=== PATIENT | male | born 1950 | race Caucasian/White ===

== ENCOUNTER 2023-08-26 10:16 | Outpatient (AMB) | payer MEDICARE, BC, SELFPAY ==
--- NOTE | 2023-08-26 10:44 | A.OFFVIS_ITS ---
Intake Visit Reasons: Elevated PSA Intake Note: NEW Patient presents today to established treatment for Elevared PSA 6.3 mg/dL, 05/2022: Meds- None Allergies to Antibiotic- No Known Allergies Blood Thinner- None Post Void Residual: 49 mL Library Director Required: No Accompanied by: Self / Same As Patient Allergies No Known Allergies Allergy (Verified 08/26/23 10:45) Medication List - Last Reconciled 08/26/23 by Eli Lawson MD lisinopril 20 mg PO DAILY HPI Comments Details: Carter is a 73-year-old male here for new patient evaluation due to elevated PSA. He denies family history of prostate cancer. Prior history of cigarette use. On lisinopril for hypertension, history of coronary artery disease. I have reviewed consult referral, PSA-05/27/23-6.3 ng/mL. The patient denies voiding symptoms AUA symptom score (- mild) 5/35. I have discussed PSA is a blood test, prostate specific antigen and is an enzyme secreted by the prostate gland. Elevated PSA may be due to multiple conditions including prostate inflammatory condition, enlarged prostate or prostate cancer. I have discussed trial of Proscar 5 mg daily and repeat PSA, will check renal/bladder ultrasound. Prostate Exam: smooth enlarged, no suspicious nodules palp'd. Bladder scan PVR 49 mL. [facility] Surgical History History of heart artery stent Hx of knee surgery Social History Alcohol intake: current Alcohol intake frequency: holidays/special occasions only Patient Tobacco Use Status: Former Tobacco user Review of Systems Const All systems reviewed & are unremarkable except as noted in HPI and below Reports no additional complaints Eyes Reports no additional complaints ENT Reports no additional complaints Card Reports no additional complaints Resp Reports no additional complaints GI Reports no additional complaints Reports as per HPI Musc Reports no additional complaints Skin/Breast Reports system reviewed and no additional complaints, except as documented Neuro Reports no additional complaints Psych Reports no additional complaints Endo Reports no additional complaints Gagan/Lymph Reports no additional complaints Aller/Immun Reports no additional complaints Physical Exam Const General: healthy appearing, no acute distress and well developed Orientation/consciousness: patient oriented x3 HEENT Head: Yes normocephalic and Yes atraumatic Eyes Conjunctivae: conjunctivae normal Neck Neck: Yes normal visual inspection Chest Chest palpation & inspection: normal inspection of the chest Resp Effort & Inspection: normal respiratory effort Cardio Rate: regular rate GI Inspection: Yes normal to inspection Palpation (GI): Soft to palpation Other: Prostate Exam: smooth enlarged, no suspicious nodules palp'd Skin General skin exam: no rashes or lesions noted Neuro General: patient oriented x3 Extrem General: No pedal edema Psych Appearance: grossly normal Affect: normal affect Office Procedures Post Void Residual Post Residual Void Post Void Residual (PVR): 49 [id number] Void Residual by ultrasound Results AMB Urinalysis, Automated UA Leukoctes 15 Rohan/uL Last Edit by SHARIF Obrien on 08/26/23 10:56 UA Nitrite Negative Last Edit by SHARIF Obrien on 08/26/23 10:56 UA Urobilinogen 0.2 mg/dL Last Edit by SHARIF Obrien on 08/26/23 10:5 6 UA Protein 15 mg/dL Last Edit by SHARIF Obrien on 08/26/23 10:56 UA pH 6.0 Last Edit by SHARIF Obrien on 08/26/23 10:56 UA Blood 0 Reyes/uL Last Edit by SHARIF Obrien on 08/26/23 10:56 UA Specific [place] 1.015 Last Edit by SHARIF Obrien on 08/26/23 10: 56 UA Ketone Negative Last Edit by SHARIF Obrien on 08/26/23 10:56 UA Bilirubin 0 mg/dL Last Edit by SHARIF Obrien on 08/26/23 10:56 UA Glucose 0 mg/dL Last Edit by SHARIF Obrien on 08/26/23 10:56 Results Reviewed Results Reviewed: Laboratory Last Values Urine pH (Auto) 6.0 08/26/23 10:47 Specific [place] (Auto) 1.015 08/26/23 10:47 Urine Protein (Auto) 15 mg/dL 08/26/23 10:47 Glucose (UA)(Auto) 0 mg/dL 08/26/23 10:47 Urine Ketones (Auto) Negative 08/26/23 10:47 Urine Blood (Auto) 0 Reyes/uL 08/26/23 10:47 Urine Nitrite (Auto) Negative 08/26/23 10:47 Urine Bilirubin (Auto) 0 mg/dL 08/26/23 10:47 Urine Urobilinogen (Auto) 0.2 mg/dL 08/26/23 10:47 Leukocyte Esterase (Auto) 15 Rohan/uL 08/26/23 10:47 Assessment & Plan Assessment & Plan (1) Elevated PSA: Code(s): R97.20 - Elevated prostate specific antigen [PSA] Category: Medical (2) BPH with elevated PSA: Code(s): N40.0 - Benign prostatic hyperplasia without lower urinary tract symptoms; R97.20 - Elevated prostate specific antigen [PSA] Category: Medical Plan Proscar 5 mg daily. Repeat PSA in 3 months. Renal and bladder ultrasound. Follow-up in 4 months. Orders: Orders AMB Urinalysis Automated Today Z13.9 - Encounter for screening, unspecified AMB Post Void Residual by ultrasound Today N39.8 - Other specified disorders of urinary system US retroperitoneal comp 1 Month N40.0 - Benign prostatic hyperplasia without lower urinary tract symptoms, R97.20 - Elevated prostate specific antigen [PSA] Medications: New finasteride (Proscar) 5 mg PO DAILY 90 days 90 tabs 1RF Patient Instructions: The patient had an opportunity to ask questions regarding treatment plan. The patient expressed understanding and agreement with the above treatment plan. The patient is aware they should contact our office by phone for worsening of their current condition or the appearance of new symptoms. Compliance is encouraged with any medications and followup testing that is ordered. It is a privilege to be allowed the opportunity to participate in the urologic care of your patient. If you have any questions or concerns regarding treatment for the above conditions please do not hesitate to contact me. The office telephone contact is [phone]. This note is constructed in part using voice recognition software. While every effort has been made to ensure accuracy retail business analyst errors may have been included. Yours sincerely, Eli Lawson MD Coding Level of Care Code New Pt Level 4 (54815) Diagnoses Elevated PSA R97.20 BPH with elevated PSA N40.0; R97.20 CPT Codes Post Residual Void - PVR CPT Code: 19476-Bsfr Void Residual by ultrasound ([id number])
== END 2023-08-26 11:13 | disposition home or self-care (01) ==
PROVIDERS: PCP Nurse Practitioner; Visit Provider Urology
DX: R97.20 Elevated prostate specific antigen [PSA] (principal); N40.0 Benign prostatic hyperplasia without lower urinary tract symptoms; Z13.9 Encounter for screening, unspecified
CPT/HCPCS: 99204

== ENCOUNTER → 2023-08-26 10:16 | Outpatient (BNVA) | payer MEDICARE, BC, SELFPAY | PROVIDERS: PCP Nurse Practitioner; Visit Provider Urology | DX: N40.0 Benign prostatic hyperplasia without lower urinary tract symptoms (principal); R97.20 Elevated prostate specific antigen [PSA] | CPT/HCPCS: 51798; 81003; 99202 ==

== ENCOUNTER 2023-09-14 10:30 | Outpatient (REF) | payer MEDICARE, BC, SELFPAY ==
--- NOTE | ~2023-09-14 | US_ITS ---
EXAMINATION: US RETROPERITONEAL COMPLETE (RENAL) CLINICAL INFORMATION: Benign prostatic hyperplasia without lower urinary tract symptoms. COMPARISON: None available. TECHNIQUE: Real-time imaging of the kidneys and bladder. FINDINGS: RIGHT KIDNEY: 11.5 x 7.0 x 5.9 cm (SAG x AP x TRV). The kidney is normal in size, contour, and echogenicity. Renal cortical thickness is normal. No renal calculi or hydronephrosis. 1.3 cm simple cyst in the mid kidney. 1.1 cm simple cyst in the upper kidney. No imaging follow-up is recommended. LEFT KIDNEY: 11.6 x 4.7 x 5.4 cm (SAG x AP x TRV). The kidney is normal in size, contour, and echogenicity. Renal cortical thickness is normal. No renal calculi or hydronephrosis. 1.9 cm simple cyst in the lower pole. 1.5 cm simple cyst in the lower pole. No imaging follow-up is recommended. BLADDER: Well distended and normal. Bilateral ureteral jets are demonstrated. Prevoid bladder volume is 168.0 mL. Postvoid bladder volume is 11.0 mL. ADDITIONAL FINDINGS: The prostate measures approximately 120 mL. US/US retroperitoneal comp IMPRESSION: Enlarged prostate measuring approximately 120 mL. No hydronephrosis.
== END 2023-09-14 10:31 | disposition home or self-care (01) ==
LOC: HO.US 10:30
PROVIDERS: PCP Internal Medicine; Visit Provider Urology
DX: N20.0 Calculus of kidney (principal); R97.20 Elevated prostate specific antigen [PSA]
CPT/HCPCS: 76770

== ENCOUNTER 2024-10-05 13:13 | Outpatient (AMB) | payer MEDICARE, SELFPAY ==
--- NOTE | 2024-10-05 13:24 | MHC.OFFVIS ---
Intake Visit Reasons: Elevated PSA Intake Note: Patient presents today for elevated PSA 05/07 PSA: 7.6 Urology Meds- None Allergies to Antibiotic- No Known Allergies Blood Thinner- None PVR:35ml Government Affairs Researcher Required: No Accompanied by: Self / Same As Patient Allergies No Known Allergies Allergy (Verified 10/05/24 13:26) Medication List - Last Reconciled 10/05/24 by Eli Lawson MD finasteride (Proscar) 5 mg PO DAILY 90 days lisinopril 20 mg PO DAILY HPI Comments Details: 10/05/24-- History of Present Illness - The patient is a 74-year-old male presenting with elevated prostate-specific antigen (PSA) levels. - The patient has a history of benign prostatic hyperplasia, with a prostate volume measured at over 100 mL - The patient was previously prescribed finasteride to manage prostate size and PSA levels but discontinued use a month ago. - Currently no significant complaints of urinary symptoms. Results - Renal ultrasound: Prostate volume measured at over 100 mL. - PSA 05/08/24--7.6 ng/mL Discussion Notes I discussed with the patient that the prostate volume is significantly enlarged at over 100 mL, which can contribute to elevated PSA levels. We reviewed the role of finasteride in reducing prostate size and PSA levels, and the importance of resuming the medication for a month before re-evaluating PSA levels. I advised the patient to avoid sexual activity and coffee before the PSA test to prevent false elevation of PSA levels. A follow-up telephone call is planned in six weeks to discuss the PSA results and determine further management, including the possibility of a biopsy if PSA levels do not decrease. 08/26/23--Carter is a 73-year-old male here for new patient evaluation due to elevated PSA. He denies family history of prostate cancer. Prior history of cigarette use. On lisinopril for hypertension, history of coronary artery disease. I have reviewed consult referral, PSA-05/27/23-6.3 ng/mL. The patient denies voiding symptoms AUA symptom score (-mild) . I have discussed PSA is a blood test, prostate specific antigen and is an enzyme secreted by the prostate gland. Elevated PSA may be due to multiple conditions including prostate inflammatory condition, enlarged prostate or prostate cancer. I have discussed trial of Proscar 5 mg daily and repeat PSA, will check renal/bladder ultrasound. Prostate Exam: smooth enlarged, no suspicious nodules palp'd. Bladder scan PVR 49 mL. [facility] Surgical History History of heart artery stent Hx of knee surgery Social History Alcohol intake: current Alcohol intake frequency: holidays/special occasions only Patient Tobacco Use Status: Former Tobacco user Review of Systems Const All systems reviewed & are unremarkable except as noted in HPI and below Reports no additional complaints Eyes Reports no additional complaints ENT Reports no additional complaints Card Reports no additional complaints Resp Reports no additional complaints GI Reports no additional complaints Reports as per HPI Musc Reports no additional complaints Skin/Breast Reports system reviewed and no additional complaints, except as documented Neuro Reports no additional complaints Psych Reports no additional complaints Endo Reports no additional complaints Gagan/Lymph Reports no additional complaints Aller/Immun Reports no additional complaints Office Procedures Post Void Residual Post Residual Void Post Void Residual (PVR): 35 [id number] Void Residual by ultrasound Results AMB Urinalysis, Automated UA Leukoctes 15 Rohan/uL Last Edit by BELEN Gan on 10/05/24 16:30 UA Nitrite Negative Last Edit by BELEN Gan on 10/05/24 16:30 UA Urobilinogen 17 mg/dL Last Edit by Peg Clark CCM on 10/05/24 16:30 UA Protein 15 mg/dL Last Edit by Peg Clark CCM on 10/05/24 16:30 UA pH 6.0 Last Edit by Peg Clark CCM on 10/05/24 16:30 UA Blood 0 Reyes/uL Last Edit by Peg Clark CCM on 10/05/24 16:30 UA Specific [place] 1.020 Last Edit by BELEN Gan on 10/05/24 16:30 UA Ketone Negative Last Edit by BELEN Gan on 10/05/24 16:30 UA Bilirubin 0 mg/dL Last Edit by Peg Clark CCM on 10/05/24 16:30 UA Glucose 0 mg/dL Last Edit by Peg Clark CCMA on 10/05/24 16:30 Results Reviewed Results Reviewed: Laboratory Last Values Urine pH (Auto) 6.0 10/05/24 16:29 Specific [place] (Auto) 1.020 10/05/24 16:29 Urine Protein (Auto) 15 mg/dL 10/05/24 16:29 Glucose (UA)(Auto) 0 mg/dL 10/05/24 16:29 Urine Ketones (Auto) Negative 10/05/24 16:29 Urine Blood (Auto) 0 Reyes/uL 10/05/24 16:29 Urine Nitrite (Auto) Negative 10/05/24 16:29 Urine Bilirubin (Auto) 0 mg/dL 10/05/24 16:29 Urine Urobilinogen (Auto) 17 mg/dL 10/05/24 16:29 Leukocyte Esterase (Auto) 15 Rohan/uL 10/05/24 16:29 Date of Service: 09/14/23 Procedure(s): US retroperitoneal comp Accession Number(s): [id number] cc: Eli Lawson MD; Juan Jose Donovan EXAMINATION: US RETROPERITONEAL COMPLETE (RENAL) CLINICAL INFORMATION: Benign prostatic hyperplasia without lower urinary tract symptoms. COMPARISON: None available. TECHNIQUE: Real-time imaging of the kidneys and bladder. FINDINGS: RIGHT KIDNEY: 11.5 x 7.0 x 5.9 cm (SAG x AP x TRV). The kidney is normal in size, contour, and echogenicity. Renal cortical thickness is normal. No renal calculi or hydronephrosis. 1.3 cm simple cyst in the mid kidney. 1.1 cm simple cyst in the upper kidney. No imaging follow-up is recommended. LEFT KIDNEY: 11.6 x 4.7 x 5.4 cm (SAG x AP x TRV). The kidney is normal in size, contour, and echogenicity. Renal cortical thickness is normal. No renal calculi or hydronephrosis. 1.9 cm simple cyst in the lower pole. 1.5 cm simple cyst in the lower pole. No imaging follow-up is recommended. BLADDER: Well distended and normal. Bilateral ureteral jets are demonstrated. Prevoid bladder volume is 168.0 mL. Postvoid bladder volume is 11.0 mL. ADDITIONAL FINDINGS: The prostate measures approximately 120 mL. US/US retroperitoneal comp IMPRESSION: Enlarged prostate measuring approximately 120 mL. No hydronephrosis. Assessment & Plan Assessment & Plan (1) Elevated PSA: Code(s): R97.20 - Elevated prostate specific antigen [PSA] Category: Medical (2) BPH with elevated PSA: Code(s): N40.0 - Benign prostatic hyperplasia without lower urinary tract symptoms; R97.20 - Elevated prostate specific antigen [PSA] Category: Medical Plan Plan - Resume finasteride to assess its effect on prostate size and PSA levels. - Schedule a PSA test in one month, - Plan a follow-up telephone call in six weeks to review PSA results and discuss further management options, including the potential need for a prostate biopsy if PSA levels remain elevated. Orders: Orders AMB Urinalysis Automated 10/05/24 Z13.9 - Encounter for screening, unspecified Medications: Refilled finasteride (Proscar) 5 mg PO DAILY 90 tabs 3RF 90 days Patient Instructions: The patient had an opportunity to ask questions regarding treatment plan. The patient expressed understanding and agreement with the above treatment plan. The patient is aware they should contact our office by phone for worsening of their current condition or the appearance of new symptoms. Compliance is encouraged with any medications and followup testing that is ordered. It is a privilege to be allowed the opportunity to participate in the urologic care of your patient. If you have any questions or concerns regarding treatment for the above conditions please do not hesitate to contact me. The office telephone contact is [phone]. This note is constructed in part using voice recognition software. While every effort has been made to ensure accuracy jackspooler errors may have been included. Yours sincerely, Eli Lawson MD Scribe Plan - Not visible on output: Patient was informed and verbally consented to the use of an ambient scribe for clinic note documentation during this visit. Coding Level of Care Code Est Pt Level 3 (62293) Complex EM visit Add On G2211 Diagnoses Elevated PSA R97.20 BPH with elevated PSA N40.0; R97.20 CPT Codes Post Residual Void - PVR CPT Code: 80975-Hast Void Residual by ultrasound ([id number])
--- OUTSIDE RECORDS SUMMARY | 2024-10-05 13:44 | XMS_ITS | Clinical Summary ---
Author Organization [facility] ity Address [address] [place] [address] Care Team Providers Care Item Processor Name Role Phone Juan Jose Donovan MD Primary Care Provider [phone] Social History Tobacco Use Types Packs/Day Years Used Date Smoking Tobacco: Never Assessed Sex and Gender Information Value Date Recorded Sex Assigned at Not on file Legal Sex Male 11:34 PM EST Gender Identity Not on file Sexual Orientation Not on file Plan of Treatment Health Maintenance Due Date Last Done Comments DTaP,Tdap,and Td Vaccines (1 - Tdap) 1969 Pneumococcal Vaccine: 50+ Ye ars (1 of 1 - PCV) 2000 Zoster Vaccines (1 of 2) 2000 Abdominal Aortic Aneurysm (A AA) Screen 03/14/2022 Cholesterol Screening (Lipid Panel) 03/14/2022 Depression Screening 03/14/2022 Falls Risk Assessment 03/14/2022 Hepatitis C Screening 03/14/2022 Social Influencers of Health Screening 03/14/2022 COVID-19 Vaccine (2023-2 5 season) 2023 Influenza Vaccine (Season Ended) 2024 RSV Immunization Adult Patie nts (1 - 1-dose 75+ series) 2025 Colorectal Cancer Screening: Colonoscopy 11/01/2026 11/01/2016 HIB Vaccines Aged Out No longer eligi ble based on patient's age to complete this topic HPV Vaccines Aged Out No longer eligi ble based on patient's age to complete this topic Hepatitis A Vaccines Aged Out No long er eligible based on patient's age to complete this topic Hepatitis B Vaccines Aged Out No long er eligible based on patient's age to complete this topic IPV Vaccines Aged Out No longer eligi ble based on patient's age to complete this topic MMR Vaccines Aged Out No longer eligi ble based on patient's age to complete this topic Meningococcal ACWY Vaccine Aged Out N o longer eligible based on patient's age to complete this topic Meningococcal B Vaccine Aged Out No l onger eligible based on patient's age to complete this topic RSV Immunization Patients Un cyndee 20 months Aged Out No longer eligible b ased on patient's age to complete this topic Varicella Vaccines Aged Out No longer eligible based on patient's age to complete this topic Procedures Procedure Name Priority Date/Time Associated Diagnosis Comments EXTERNAL COLONOSCOPY REPORT Routine 11/01/2016 4:10 PM EDT from Last 3 Months or Most Recently Relevant to Health Maintenance Results * External Colonoscopy Report (11/01/2016 4:10 PM EDT) Anatomical Region Laterality Modality Endoscopy us Historical Provider GI~PROCEDURE ORDERABLES F inal Result from Last 3 Months or Most Recently Relevant to Health Maintenance Care Teams Item Processor Relationship Specialty Start Date End Date Juan Jose Donovan MD PCP - General 09/03/14
== END 2024-10-05 14:38 | disposition home or self-care (01) ==
LOC: HO.HUSH 13:13
PROVIDERS: PCP Internal Medicine; Visit Provider Urology
DX: R97.20 Elevated prostate specific antigen [PSA] (principal); N40.0 Benign prostatic hyperplasia without lower urinary tract symptoms
CPT/HCPCS: 99213; G2211

== ENCOUNTER → 2024-10-05 13:13 | Outpatient (BNVA) | payer MEDICARE, SELFPAY | PROVIDERS: PCP Internal Medicine; Visit Provider Urology | DX: R97.20 Elevated prostate specific antigen [PSA] (principal); N40.0 Benign prostatic hyperplasia without lower urinary tract symptoms | CPT/HCPCS: 51798; 81003; 99212 ==

== ENCOUNTER 2024-11-15 13:41 | Outpatient (AMB) | payer MEDICARE, SELFPAY ==
--- NOTE | 2024-11-15 13:41 | MHC.OFFVIS ---
Intake Visit Reasons: 6w/PSA Intake Note: Patient presents today via telehealth for 6w/PSA 11/08 PSA:5.3 Urology Meds- None Allergies to Antibiotic- No Known Allergies Blood Thinner- None Field Human Resources Manager Required: No Accompanied by: Self / Same As Patient Allergies No Known Allergies Allergy (Verified 11/15/24 13:44) HPI Comments Details: 11/15/24--Carter presents for telehealth follow-up for elevated PSA. Repeat PSA was done on 11/08/2024 was 5.3 ng/mL. Plan we will continue finasteride daily. Continue PSA screening in 6 months 10/05/24-- The patient is a 74-year-old male presenting with elevated prostate-specific antigen (PSA) levels. - The patient has a history of benign prostatic hyperplasia, with a prostate volume measured at over 100 mL - The patient was previously prescribed finasteride to manage prostate size and PSA levels but discontinued use a month ago. - Currently no significant complaints of urinary symptoms. Results - Renal ultrasound: Prostate volume measured at over 100 mL. - PSA 05/08/24--7.6 ng/mL 08/26/23--Carter is a 73-year-old male here for new patient evaluation due to elevated PSA. He denies family history of prostate cancer. Prior history of cigarette use. On lisinopril for hypertension, history of coronary artery disease. I have reviewed consult referral, PSA-05/27/23-6.3 ng/mL. The patient denies voiding symptoms AUA symptom score (-mild) 5/35. I have discussed PSA is a blood test, prostate specific antigen and is an enzyme secreted by the prostate gland. Elevated PSA may be due to multiple conditions including prostate inflammatory condition, enlarged prostate or prostate cancer. I have discussed trial of Proscar 5 mg daily and repeat PSA, will check renal/bladder ultrasound. Prostate Exam: smooth enlarged, no suspicious nodules palp'd. Bladder scan PVR 49 mL. [facility] Surgical History History of heart artery stent Hx of knee surgery Social History Alcohol intake: current Alcohol intake frequency: holidays/special occasions only Patient Tobacco Use Status: Former Tobacco user Review of Systems Const All systems reviewed & are unremarkable except as noted in HPI and below Reports no additional complaints Eyes Reports no additional complaints ENT Reports no additional complaints Card Reports no additional complaints Resp Reports no additional complaints GI Reports no additional complaints Reports as per HPI Musc Reports no additional complaints Skin/Breast Reports system reviewed and no additional complaints, except as documented Neuro Reports no additional complaints Psych Reports no additional complaints Endo Reports no additional complaints Gagan/Lymph Reports no additional complaints Aller/Immun Reports no additional complaints Telehealth Telehealth Telehealth Platform: Telephone Location of provider rendering services: practice address Location of patient: address on file Patient Identification confirmed using: Name, : Yes Telehealth method: voice only Patient verbally consented to treatment: Yes Patient verbally consented to billing insurance company: Yes Patient informed of any privacy concerns related to visit: Yes Minutes spent on Phone/Video with Pt.: 12 Assessment & Plan Assessment & Plan (1) Elevated PSA: Code(s): R97.20 - Elevated prostate specific antigen [PSA] Category: Medical (2) BPH with elevated PSA: Code(s): N40.0 - Benign prostatic hyperplasia without lower urinary tract symptoms; R97.20 - Elevated prostate specific antigen [PSA] Category: Medical Plan Plan we will continue finasteride daily. Continue PSA screening in 6 months Patient Instructions: The patient had an opportunity to ask questions regarding treatment plan. The patient expressed understanding and agreement with the above treatment plan. The patient is aware they should contact our office by phone for worsening of their current condition or the appearance of new symptoms. Compliance is encouraged with any medications and followup testing that is ordered. It is a privilege to be allowed the opportunity to participate in the urologic care of your patient. If you have any questions or concerns regarding treatment for the above conditions please do not hesitate to contact me. The office telephone contact is [phone]. This note is constructed in part using voice recognition software. While every effort has been made to ensure accuracy signal worker errors may have been included. Yours sincerely, Eli nurse to the MD Lulu Coding Level of Care Code Tele Est Pt Level 3 (58135) Diagnoses Elevated PSA R97.20 BPH with elevated PSA N40.0; R97.20
--- OUTSIDE RECORDS SUMMARY | 2024-11-15 13:43 | XMS_ITS | Clinical Summary ---
Author Organization [facility] ity Address [address] [place] [address] Care Team Providers Care Documentation Consultant Name Role Phone Juan Jose Donovan MD Primary Care Provider [phone] Social History Tobacco Use Types Packs/Day Years [...] Screen 03/14/2022 Cholesterol Screening (Lipid Panel) 03/14/2022 Falls Risk Assessment 03/14/2022 Hepatitis C Screening 03/14/2022 Social Influencers of Health Screening 03/14/2022 COVID-19 Vaccine ( - 2023-2 5 season) 2023 Depression Screening 04/11/2024 Influenza Vaccine (#1) 2024 RSV Immunization Adult Patie nts (1 [...] Recently Relevant to Health Maintenance Care Teams Documentation Consultant Relationship Specialty Start Date End Date Juan Jose Donovan MD PCP - General 09/03/14
== END 2024-11-15 15:45 | disposition home or self-care (01) ==
PROVIDERS: PCP Internal Medicine; Visit Provider Urology
DX: R97.20 Elevated prostate specific antigen [PSA] (principal); N40.0 Benign prostatic hyperplasia without lower urinary tract symptoms
CPT/HCPCS: 99213